=== PATIENT | female | born 1985 | race Caucasian/White ===

== ENCOUNTER 2016-09-08 17:32 | Emergency (ER) | payer OTHER ==
[2016-09-08] MEDS ORDERED: SUNMARK OMEPRAZ20 MG PO (17:49)
[2016-09-08] MEDS ORDERED: TOPAMAX100 M1 PO (17:49)
[2016-09-08 18:03] LABS: BASO # 0.1 10*3/uL (0.0-0.1); BASO % 0.4 % (0.0-1.0); EOS # 0.3 10*3/uL (0.0-0.4); EOS % 2.5 % (1.0-4.0); HEMATOCRIT 39.8 % (37.0-47.0); HEMOGLOBIN 12.5 g/dl (12.0-16.0); LYMPH # 3.1 10*3/uL (1.3-4.4); LYMPH % 26.6 % (27.0-41.0); MEAN CELL VOLUME 79.1 fl (81.0-99.0); MEAN CORPUSCULAR HGB 24.9 pg (27.0-31.0); MEAN CORPUSCULAR HGB CONC 31.4 g/dl (33.0-37.0); MEAN PLATELET VOLUME 9.9 fl (9.6-12.3); MONO # 0.5 10*3/uL (0.1-1.0); MONO % 4.5 % (3.0-9.0); NEUT # 7.7 10*3/uL (2.3-7.9); NEUT % 65.7 % (47.0-73.0); PLATELET COUNT AUTOMATED 320 10*3/uL (130-400); RED BLOOD COUNT 5.03 10*6/uL (4.10-5.10); RED CELL DISTRI WIDTH 15.3 % (0-14.5); WHITE BLOOD COUNT 11.8 10*3/uL (4.8-10.8)
[2016-09-08 18:17] LABS: ALBUMIN 3.3 gm/dl (3.1-4.5); ALKALINE PHOSPHATASE 141 U/L (45-117); BILIRUBIN, TOTAL 0.2 mg/dl (0.2-1.0); BUN 10 mg/dl (7-24); CARBON DIOXIDE 28 mmol/L (21-32); CHLORIDE 104 mmol/L (98-107); EST GLOM FILT AFRICAN AMERICAN > 60 ml/min; GLUCOSE 83 mg/dL (65-99); POTASSIUM 4.1 mmol/L (3.5-5.1); SGOT/AST 58 IU/L (3-35); SGPT/ALT 102 U/L (12-78); SODIUM 143 mmol/L (136-145); TOTAL PROTEIN 7.3 gm/dL (6.4-8.2)
[2016-09-08 18:34] LABS: BILIRUBIN NEGATIVE (NEGATIVE); BLOOD 1+ (NEGATIVE); CLARITY SL CLOUDY (CLEAR); COLOR YELLOW (YELLOW); GLUCOSE NEGATIVE (NEGATIVE); KETONE TRACE (NEGATIVE); LEUKO ESTERASE 2+ (NEGATIVE); NITRITE NEGATIVE (NEGATIVE); PROTEIN TRACE (NEGATIVE); SPECIFIC GRAVITY 1.015 (1.005-1.030)
[2016-09-08 18:50] LABS: BACTERIA 1+; EPITHELIAL CELLS 30-35; MUCOUS TRACE; URINE REFLEX COMMENT YES (NO); WBC 31-40 wbc/hpf (0-5)
[2016-09-08] MEDS ORDERED: BACTRIM DS 8001 TA1 PO (18:59)
== END 2016-09-08 23:38 | disposition home or self-care (01) ==
LOC: ED 17:32
PROVIDERS: Registered Nurse
DX: N30.00 Acute cystitis without hematuria (principal); R94.5 Abnormal results of liver function studies; Z88.0 Allergy status to penicillin; Z79.899 Other long term (current) drug therapy

== ENCOUNTER 2016-11-21 16:17 | Emergency (ER) | payer OTHER ==
[~2016-11-21] VITALS: Ht 144.7 cm; Wt 111.1 kg
[~2016-11-21 16:17] MED LIST: BACTRIM DS 8001 TA1 PO; SUNMARK OMEPRAZ20 MG PO; TOPAMAX100 M1 PO
[2016-11-21 16:37] LABS: BASO # 0.1 10*3/uL (0.0-0.1); BASO % 0.5 % (0.0-1.0); EOS # 0.1 10*3/uL (0.0-0.4); HEMATOCRIT 39.6 % (37.0-47.0); HEMOGLOBIN 12.4 g/dl (12.0-16.0); LYMPH # 3.1 10*3/uL (1.3-4.4); MEAN CELL VOLUME 81.5 fl (81.0-99.0); MEAN CORPUSCULAR HGB 25.5 pg (27.0-31.0); MEAN CORPUSCULAR HGB CONC 31.3 g/dl (33.0-37.0); MEAN PLATELET VOLUME 9.3 fl (9.6-12.3); MONO # 0.5 10*3/uL (0.1-1.0); MONO % 4.4 % (3.0-9.0); NEUT # 7.3 10*3/uL (2.3-7.9); NEUT % 65.7 % (47.0-73.0); PLATELET COUNT AUTOMATED 325 10*3/uL (130-400); RED BLOOD COUNT 4.86 10*6/uL (4.10-5.10); RED CELL DISTRI WIDTH 15.9 % (0-14.5)
[2016-11-21 16:45] LABS: BILIRUBIN NEGATIVE (NEGATIVE); BLOOD NEGATIVE (NEGATIVE); CLARITY SL CLOUDY (CLEAR); COLOR YELLOW (YELLOW); GLUCOSE NEGATIVE (NEGATIVE); KETONE 2+ (NEGATIVE); LEUKO ESTERASE NEGATIVE (NEGATIVE); NITRITE NEGATIVE (NEGATIVE); PH 5.5 (5.0-9.0); SPECIFIC GRAVITY >= 1.030 (1.005-1.030); UROBILINOGEN 0.2 E.U./dl (0.2-1.0)
[2016-11-21 16:51] LABS: BACTERIA TRACE; EPITHELIAL CELLS 21-30; MUCOUS 1+; WBC 0-2 wbc/hpf (0-5)
[2016-11-21 16:52] LABS: ALBUMIN 3.3 gm/dl (3.1-4.5); ALKALINE PHOSPHATASE 147 U/L (45-117); BUN 10 mg/dl (7-24); CHLORIDE 108 mmol/L (98-107); CREATININE 0.55 mg/dL (0.55-1.02); LIPASE 143 U/L (73-393); POTASSIUM 3.9 mmol/L (3.5-5.1); SGOT/AST 31 IU/L (3-35); SGPT/ALT 55 U/L (12-78); SODIUM 137 mmol/L (136-145); TOTAL PROTEIN 7.6 gm/dL (6.4-8.2)
[2016-11-21] MEDS ORDERED: LIDEX 0.05% CRE15 GM T (16:56)
== END 2016-11-21 17:36 | disposition home or self-care (01) ==
LOC: ED 16:17
PROVIDERS: Nurse Practitioner Family
DX: R51 Headache (principal); R11.0 Nausea; R25.1 Tremor, unspecified; R03.0 Elevated blood-pressure reading, without diagnosis of hypertension; Z88.0 Allergy status to penicillin; Z79.899 Other long term (current) drug therapy

== ENCOUNTER 2017-04-19 16:30 | Emergency (ER) | payer OTHER ==
[~2017-04-19] VITALS: Ht 144.7 cm; Wt 106.6 kg
[~2017-04-19 16:30] MED LIST changes: +LIDEX 0.05% CRE15 GM T
[2017-04-19] MEDS ORDERED: TAMIFLU45 MG PO (17:24)
== END 2017-04-19 17:26 | disposition home or self-care (01) ==
LOC: ED 16:30
DX: J09.X2 Influenza due to identified novel influenza A virus with other respiratory manifestations (principal); F10.10 Alcohol abuse, uncomplicated; Z88.0 Allergy status to penicillin; Z79.899 Other long term (current) drug therapy

== ENCOUNTER 2018-02-09 15:36 | Emergency (ER) | payer SELFPAY ==
[~2018-02-09] VITALS: Ht 144.7 cm; Wt 108.9 kg
[~2018-02-09 15:36] MED LIST changes: +TAMIFLU45 MG PO
== END 2018-02-09 18:02 | disposition home or self-care (01) ==
LOC: ED 15:36
DX: G43.909 Migraine, unspecified, not intractable, without status migrainosus (principal); Z79.899 Other long term (current) drug therapy

== ENCOUNTER 2018-07-24 09:46 | Emergency (ER) | payer OTHER ==
[~2018-07-24] VITALS: Ht 144.7 cm; Wt 111.1 kg
== END 2018-07-24 12:53 | disposition home or self-care (01) ==
LOC: ED 09:46
DX: G43.909 Migraine, unspecified, not intractable, without status migrainosus (principal); Z79.899 Other long term (current) drug therapy; Z88.0 Allergy status to penicillin; Z88.8 Allergy status to other drugs, medicaments and biological substances

== ENCOUNTER 2019-01-15 06:05 | Emergency (ER) | payer OTHER ==
[~2019-01-15] VITALS: Ht 144.7 cm; Wt 111.1 kg
[2019-01-15] MEDS ORDERED: Tobrex Ophth S2.5 ML OPH (06:30)
== END 2019-01-15 06:47 | disposition home or self-care (01) ==
LOC: ED 06:05
DX: H10.9 Unspecified conjunctivitis (principal); G43.909 Migraine, unspecified, not intractable, without status migrainosus; Z88.0 Allergy status to penicillin; Z88.8 Allergy status to other drugs, medicaments and biological substances; Z79.899 Other long term (current) drug therapy; Z79.2 Long term (current) use of antibiotics

== ENCOUNTER 2023-03-21 22:56 | Emergency (ER) | payer OTHER ==
[~2023-03-21] VITALS: Ht 144.7 cm; Wt 124.7 kg
[~2023-03-21 22:56] MED LIST changes: +Tobrex Ophth S2.5 ML OPH
[2023-03-22] MEDS ORDERED: METHOCARBAMOL750 M1 PO (00:11)
[2023-03-22] MEDS ORDERED: NAPROSYN500 MG PO (00:11)
== END 2023-03-22 00:54 | disposition home or self-care (01) ==
LOC: ED 22:56
DX: S39.012A Strain of muscle, fascia and tendon of lower back, initial encounter (principal); K21.9 Gastro-esophageal reflux disease without esophagitis; G43.909 Migraine, unspecified, not intractable, without status migrainosus; Z88.0 Allergy status to penicillin; Z88.8 Allergy status to other drugs, medicaments and biological substances; Z90.49 Acquired absence of other specified parts of digestive tract; Z98.890 Other specified postprocedural states; X50.1XXA Overexertion from prolonged static or awkward postures, initial encounter; Y93.89 Activity, other specified; Y92.009 Unspecified place in unspecified non-institutional (private) residence as the place of occurrence of the external cause; Y99.8 Other external cause status

== ENCOUNTER 2023-05-02 11:34 | Emergency (ER) | payer OTHER ==
[~2023-05-02] VITALS: Ht 144.7 cm; Wt 124.7 kg
[~2023-05-02 11:34] MED LIST changes: +METHOCARBAMOL750 M1 PO; +NAPROSYN500 MG PO
[2023-05-02 13:28] LABS: BASO # 0.1 10*3/uL (0.0-0.1); BASO % 0.6 % (0.0-1.0); EOS # 0.4 10*3/uL (0.0-0.4); EOS % 3.9 % (1.0-4.0); LYMPH # 2.5 10*3/uL (1.3-4.4); LYMPH % 22.5 % (27.0-41.0); MEAN CORPUSCULAR HGB 24.7 pg (27.0-31.0); MEAN CORPUSCULAR HGB CONC 29.8 g/dl (33.0-37.0); MEAN PLATELET VOLUME 9.9 fl (9.6-12.3); MONO # 0.5 10*3/uL (0.1-1.0); MONO % 4.9 % (3.0-9.0); NEUT # 7.4 10*3/uL (2.3-7.9); NEUT % 67.8 % (47.0-73.0); PLATELET COUNT AUTOMATED 358 10*3/uL (130-400); RED BLOOD COUNT 5.54 10*6/uL (4.10-5.10); RED CELL DISTRI WIDTH 15.4 % (0-14.5); WHITE BLOOD COUNT 10.9 10*3/uL (4.8-10.8)
[2023-05-02 13:55] LABS: ALKALINE PHOSPHATASE 122 U/L (46-116); BUN 8 mg/dl (9-23); CHLORIDE 104 mmol/L (98-107); SGPT/ALT 29 U/L (5-49); TOTAL PROTEIN 7.3 gm/dL (6.0-8.0)
[2023-05-02] MEDS ORDERED: NEXIUM 24HR20 M2 PO (14:48)
== END 2023-05-02 15:11 | disposition home or self-care (01) ==
LOC: ED 11:34
PROVIDERS: Nurse Practitioner Family
DX: B34.9 Viral infection, unspecified (principal); Z20.822 Contact with and (suspected) exposure to COVID-19; K21.9 Gastro-esophageal reflux disease without esophagitis; G43.909 Migraine, unspecified, not intractable, without status migrainosus; Z88.0 Allergy status to penicillin; Z88.8 Allergy status to other drugs, medicaments and biological substances; Z90.49 Acquired absence of other specified parts of digestive tract; Z98.890 Other specified postprocedural states

== ENCOUNTER 2023-08-03 11:00 | Emergency (ER) | payer OTHER ==
[~2023-08-03] VITALS: Wt 124.7 kg
[~2023-08-03 11:00] MED LIST changes: +NEXIUM 24HR20 M2 PO
[2023-08-03] MEDS ORDERED: Ondansetron Hydrochloride 4 MG TAB PO ONE (11:55)
[2023-08-03 12:02] LABS: BILIRUBIN Negative (Negative); BLOOD Negative (Negative); CLARITY Clear (Clear); COLOR Dark Yellow (Yellow); GLUCOSE Negative (Negative); KETONE Trace (Negative); LEUKO ESTERASE Trace (Negative); NITRITE Negative (Negative); PH 6.5 (4.5-8.0); SPECIFIC GRAVITY >= 1.030 (1.001-1.030)
[2023-08-03 12:20] LABS: BACTERIA TRACE; HYALINE CAST 0-2; MUCOUS 3+
[2023-08-03 12:35] LABS: BASO # 0.1 10*3/uL (0.0-0.1); BASO % 0.5 % (0.0-1.0); EOS # 0.5 10*3/uL (0.0-0.4); EOS % 5.2 % (1.0-4.0); HEMATOCRIT 41.6 % (37.0-47.0); LYMPH # 2.6 10*3/uL (1.3-4.4); LYMPH % 26.3 % (27.0-41.0); MEAN CELL VOLUME 82.4 fl (81.0-99.0); MEAN CORPUSCULAR HGB 25.5 pg (27.0-31.0); MEAN PLATELET VOLUME 9.5 fl (9.6-12.3); MONO # 0.5 10*3/uL (0.1-1.0); MONO % 4.8 % (3.0-9.0); NEUT # 6.2 10*3/uL (2.3-7.9); PLATELET COUNT AUTOMATED 339 10*3/uL (130-400); RED BLOOD COUNT 5.05 10*6/uL (4.10-5.10); RED CELL DISTRI WIDTH 14.9 % (0-14.5); WHITE BLOOD COUNT 9.8 10*3/uL (4.8-10.8)
[2023-08-03 13:02] LABS: ALKALINE PHOSPHATASE 111 U/L (46-116); BUN 9 mg/dl (9-23); CHLORIDE 104 mmol/L (98-107); LIPASE 41 U/L (12-53); POTASSIUM 3.8 mmol/L (3.4-5.1); SGPT/ALT 31 U/L (5-49); TOTAL PROTEIN 6.7 gm/dL (6.0-8.0)
[2023-08-03] MEDS ORDERED: ONDANSETRON4 MG SL (14:07)
[2023-08-03] MEDS ORDERED: PROTONIX40 MG PO (14:07)
== END 2023-08-03 14:09 | disposition home or self-care (01) ==
LOC: ED 11:00
PROVIDERS: Nurse Practitioner
DX: K21.9 Gastro-esophageal reflux disease without esophagitis (principal); R05.9 Cough, unspecified; Z88.8 Allergy status to other drugs, medicaments and biological substances; Z88.0 Allergy status to penicillin; Z79.899 Other long term (current) drug therapy; Z90.49 Acquired absence of other specified parts of digestive tract

== ENCOUNTER 2023-10-31 04:49 | Emergency (ER) | payer OTHER ==
[~2023-10-31 04:49] MED LIST changes: +ONDANSETRON4 MG SL; +PROTONIX40 MG PO
[2023-10-31] MEDS ORDERED: Ondansetron Hydrochloride 4 MG TAB SL ONE (05:00)
[2023-10-31 05:33] LABS: ALKALINE PHOSPHATASE 112 U/L (46-116); BUN 9 mg/dl (9-23); CHLORIDE 108 mmol/L (98-107); LIPASE 40 U/L (12-53); POTASSIUM 3.9 mmol/L (3.4-5.1); SGPT/ALT 38 U/L (5-49); TOTAL PROTEIN 6.3 gm/dL (6.0-8.0)
[2023-10-31 05:55] LABS: BASO % 0.3 % (0.0-1.0); EOS # 0.3 10*3/uL (0.0-0.4); LYMPH # 2.5 10*3/uL (1.3-4.4); LYMPH % 27.4 % (27.0-41.0); MEAN CORPUSCULAR HGB 25.6 pg (27.0-31.0); MEAN CORPUSCULAR HGB CONC 30.5 g/dl (33.0-37.0); MEAN PLATELET VOLUME 9.9 fl (9.6-12.3); MONO # 0.5 10*3/uL (0.1-1.0); MONO % 5.2 % (3.0-9.0); NEUT # 5.7 10*3/uL (2.3-7.9); NEUT % 62.9 % (47.0-73.0); PLATELET COUNT AUTOMATED 330 10*3/uL (130-400); RED BLOOD COUNT 4.88 10*6/uL (4.10-5.10); RED CELL DISTRI WIDTH 15.6 % (0-14.5)
[2023-10-31] MEDS ORDERED: Ondansetron4 MG PO (06:25)
== END 2023-10-31 06:23 | disposition home or self-care (01) ==
LOC: ED 04:49
PROVIDERS: Internal Medicine
DX: R11.0 Nausea (principal); E44.1 Mild protein-calorie malnutrition; R10.11 Right upper quadrant pain; K21.9 Gastro-esophageal reflux disease without esophagitis; G43.909 Migraine, unspecified, not intractable, without status migrainosus; Z68.1 Body mass index [BMI] 19.9 or less, adult; Z88.8 Allergy status to other drugs, medicaments and biological substances; Z88.0 Allergy status to penicillin; Z98.890 Other specified postprocedural states; Z90.49 Acquired absence of other specified parts of digestive tract

== ENCOUNTER → 2023-11-05 | Outpatient (CLI) | payer OTHER ==
[~2023-11-05] MED LIST changes: +Ondansetron4 MG PO
== END | disposition home or self-care (01) ==
LOC: LAB 08:01
PROVIDERS: ATTEND Student in an Organized Health Care Education/Training Program
DX: E04.1 Nontoxic single thyroid nodule (principal); E55.9 Vitamin D deficiency, unspecified; E66.01 Morbid (severe) obesity due to excess calories

== ENCOUNTER 2024-10-25 17:46 | Emergency (ER) | payer OTHER ==
[~2024-10-25] VITALS: Wt 97.5 kg
[2024-10-25] MEDS ORDERED: SODIUM CHLORIDE 0.9% 1,000 ML IV ONE (18:05)
[2024-10-25 18:32] LABS: BASO # 0.0 10*3/uL (0.0-0.1); BASO % 0.3 % (0.0-1.0); EOS # 0.1 10*3/uL (0.0-0.4); EOS % 1.1 % (1.0-4.0); MEAN CELL VOLUME 85.8 fl (81.0-99.0); MEAN CORPUSCULAR HGB 27.5 pg (27.0-31.0); MEAN PLATELET VOLUME 9.7 fl (9.6-12.3); MONO # 0.6 10*3/uL (0.1-1.0); MONO % 5.2 % (3.0-9.0); NEUT # 7.9 10*3/uL (2.3-7.9); NEUT % 64.7 % (47.0-73.0); NUCLEATED RED BLOOD CELL 0.0 % (0.0-0.0); NUCLEATED RED BLOOD CELL 0.0 10*3/uL (0.0-0.0); PLATELET COUNT AUTOMATED 311 10*3/uL (130-400); RED CELL DISTRI WIDTH 13.7 % (0-14.5)
[2024-10-25 18:43] LABS: ACT PARTIAL THROMBO TIME 27.5 SECONDS (20.0-32.1)
[2024-10-25 19:01] LABS: BUN 11 mg/dl (9-23)
[2024-10-25 19:03] LABS: BETA-HCG, QUANT < 3.0 mIU/mL (3-10)
== END 2024-10-25 20:04 | disposition home or self-care (01) ==
LOC: ED 17:46
PROVIDERS: Internal Medicine
DX: R00.2 Palpitations (principal); Z88.8 Allergy status to other drugs, medicaments and biological substances; Z88.0 Allergy status to penicillin; Z79.899 Other long term (current) drug therapy; Z90.49 Acquired absence of other specified parts of digestive tract; Z98.84 Bariatric surgery status

== ENCOUNTER 2024-11-08 05:42 | Emergency (ER) | payer OTHER ==
[~2024-11-08] VITALS: Ht 144.7 cm; Wt 97.5 kg
[2024-11-08 07:00] LABS: BASO # 0.0 10*3/uL (0.0-0.1); BASO % 0.4 % (0.0-1.0); EOS # 0.1 10*3/uL (0.0-0.4); EOS % 1.9 % (1.0-4.0); MEAN CELL VOLUME 86.4 fl (81.0-99.0); MEAN CORPUSCULAR HGB 26.9 pg (27.0-31.0); MEAN PLATELET VOLUME 10.2 fl (9.6-12.3); MONO # 0.4 10*3/uL (0.1-1.0); MONO % 5.3 % (3.0-9.0); NEUT # 4.2 10*3/uL (2.3-7.9); NEUT % 59.8 % (47.0-73.0); NUCLEATED RED BLOOD CELL 0.0 % (0.0-0.0); NUCLEATED RED BLOOD CELL 0.0 10*3/uL (0.0-0.0); PLATELET COUNT AUTOMATED 273 10*3/uL (130-400); RED CELL DISTRI WIDTH 14.0 % (0-14.5)
[2024-11-08 07:20] LABS: BUN 9 mg/dl (9-23); SGPT/ALT 24 U/L (5-49)
== END 2024-11-08 08:04 | disposition home or self-care (01) ==
LOC: ED 05:42
PROVIDERS: Emergency Medicine
DX: R07.89 Other chest pain (principal); R00.2 Palpitations; Z88.8 Allergy status to other drugs, medicaments and biological substances; Z88.0 Allergy status to penicillin; Z90.49 Acquired absence of other specified parts of digestive tract; Z98.84 Bariatric surgery status